=== PATIENT | male | born 1970 | race Hispanic/Latino ===

== ENCOUNTER 2021-05-14 00:27 | Emergency (ER) | payer BC ==
[2021-05-14] MEDS ORDERED: Proparacaine 0.5% Opth 15 ML BOT ONE (00:39)
[2021-05-14] MEDS ORDERED: Fluorescein Opthalmic Strip ONE (00:39)
== END 2021-05-14 02:55 | disposition home or self-care (01) ==
LOC: NAV ERS 00:27
DX: T15.01XA Foreign body in cornea, right eye, initial encounter (principal); F17.210 Nicotine dependence, cigarettes, uncomplicated; X58.XXXA Exposure to other specified factors, initial encounter
CPT/HCPCS: 65220